=== PATIENT | female | born 1950 | race African-American/Black ===

== ENCOUNTER 2018-10-20 21:11 | Emergency (ER) | payer MEDICARE, OTHER ==
[~2018-10-20] VITALS: Ht 160 cm; Wt 73.0 kg
[2018-10-20 22:47] LABS: BASOPHILS % 0.6 % (0.0-2.0); EOSINOPHILS % 1.4 % (0.0-5.0); HEMATOCRIT. 41.2 % (36.0-48.0); HEMOGLOBIN. 14.1 g/dL (12.0-16.0); LYMPHOCYTES % 44.9 % (20.0-50.0); MEAN CORPUSCULAR HEMOGLOBIN 31.9 pg (28.0-32.0); MEAN CORPUSCULAR VOLUME 93.3 fL (81.0-99.0); MEAN PLATELET VOLUME 8.7 fl (7.4-10.4); MONOCYTES % 7.1 % (2.0-8.0); PLATELET 119 x1000/uL (130-400); RED BLOOD CELL COUNT 4.42 mill/uL (4.2-5.4); RED CELL DISTRIBUTION WIDTH 13.3 % (11.6-14.6)
[2018-10-20 22:54] LABS: CHLORIDE 107 mEq/L (98-107)
[2018-10-21] MEDS ORDERED: ASPIRIN 81MG TABLET PO ONE
[2018-10-21 00:52] VITALS: BP 167/74
== END 2018-10-21 00:59 | disposition left against medical advice (07) ==
LOC: ER 23:26 → CANBEDREQ 10-21 03:54
DX: R07.89 Other chest pain (principal); J44.9 Chronic obstructive pulmonary disease, unspecified; I10 Essential (primary) hypertension; F17.200 Nicotine dependence, unspecified, uncomplicated
CPT/HCPCS: 36415; 71045; 83880; 84484; 93005; 99284